=== PATIENT | female | born 1985 | race Caucasian/White ===

== ENCOUNTER → 2017-04-11 11:44 | Outpatient (CLI) | payer OTHER | END | disposition home or self-care (01) | LOC: D.RAD 11:30 | DX: Z02.71 Encounter for disability determination (principal) ==

== ENCOUNTER 2018-05-17 12:43 | Emergency (ER) | payer MEDICAID ==
[~2018-05-17] VITALS: Ht 162.6 cm; Wt 93.0 kg
[2018-05-17 12:59] VITALS: Ht 162.6 cm; Wt 93.0 kg
[2018-05-17] MEDS ORDERED: ROBAXIN-750750 MG PO (15:12)
[2018-05-17] MEDS ORDERED: TYLENOL W/CODEI1 TAB PO (15:12)
[2018-05-17] MEDS ORDERED: MUPIROCIN22 GM TOPICAL (15:12)
[2018-05-17] MEDS ORDERED: BACTRIM DS TABL1 TAB PO (15:12)
[2018-05-17 16:29] VITALS: BP 125/74
== END 2018-05-17 16:30 | disposition home or self-care (01) ==
LOC: D.ER 12:43
DX: S50.811A Abrasion of right forearm, initial encounter (principal); S60.511A Abrasion of right hand, initial encounter; S60.311A Abrasion of right thumb, initial encounter; S80.212A Abrasion, left knee, initial encounter; V23.5XXA Motorcycle passenger injured in collision with car, pick-up truck or van in traffic accident, initial encounter; Y93.89 Activity, other specified; Y92.410 Unspecified street and highway as the place of occurrence of the external cause; M54.2 Cervicalgia; M54.9 Dorsalgia, unspecified